=== PATIENT | male | born 1970 | race Caucasian/White ===

== ENCOUNTER 2025-08-24 08:36 | Emergency (ER) | payer OTHER ==
[~2025-08-24] VITALS: Ht 167.6 cm; Wt 65.9 kg
[2025-08-24 08:41] VITALS: TEMP 98
[2025-08-24] MEDS: KETOROLAC TROMETHAMINE 60 MG/2 ML VIAL IM ONE (10:34)
[2025-08-24] MEDS ORDERED: IBUP-1492 PO (12:03)
[2025-08-24 12:15] VITALS: BP 130/65; PULSE 89; RESP 17; O2SAT 100
== END 2025-08-24 12:40 | disposition home or self-care (01) ==
LOC: EMS 08:36
DX: G44.309 Post-traumatic headache, unspecified, not intractable (principal); G89.29 Other chronic pain; H93.19 Tinnitus, unspecified ear; Y04.0XXA Assault by unarmed brawl or fight, initial encounter
CPT/HCPCS: 99285; 70450; 96372; J1885